=== PATIENT | male | born 1960 | race Two or more races ===

== ENCOUNTER 2018-09-25 10:00 | Outpatient (AMBR) | payer MEDICAID, SELFPAY ==
--- NOTE | 2018-09-08 18:27 | PT.ODAYNRPT ---
PT Outpatient Daily Note Date of Service: September 08, 2018 OP Daily Note Visit Reasons: muscle weakness Outpatient Physical Therapy Treatment Date: 09/08/18 Subjective: He says the L LE is not shaking from weakness like it was before therapy. Objective: See F/S for therex Assessment: Improved exercise tolerance with squats and treadmill today with improved L LE strength. Plan: Continue per POC Length of Time (minutes) of Treatment: 30 Minutes Office Procedures PT Procedures PT Date of Service: 09/08/18 Therapeutic Exercise 30 minutes: Yes
--- NOTE | 2018-09-15 11:10 | PT.ODAYNRPT ---
PT Outpatient Daily Note Date of Service: September 15, 2018 OP Daily Note Visit Reasons: muscle weakness Outpatient Physical Therapy Treatment Date: 09/15/18 Subjective: He says the L LE is not shaking from weakness like it was before therapy. Objective: See F/S for therex Assessment: Improved exercise tolerance overall but difficulty and fatigue with lunging onto that L LE today. Plan: Continue per POC Length of Time (minutes) of Treatment: 30 Minutes Office Procedures PT Procedures PT Date of Service: 09/08/18 Therapeutic Exercise 30 minutes: Yes PT Procedures PT Date of Service: 09/15/18 Therapeutic Exercise 30 minutes: Yes
--- NOTE | 2018-09-19 10:08 | PT.ODAYNRPT ---
PT Outpatient Daily Note Date of Service: September 19, 2018 OP Daily Note Visit Reasons: muscle weakness Outpatient Physical Therapy Treatment Date: 09/19/18 Subjective: pt doing well today with no complaints. pt always in positive mood upon treatment. Objective: see flow sheet. Assessment: added new exercises and pt was a little SOB but refused to take a break. pt performed all ther ex well with no difficulties. pt had fair balance on the [employer] baord as he was throwing the ball and catching it. used the [employer] ball for side steps and he had a little off balance the first 2 reps than he was able to keep the momentum with good balance. Plan: continue POC per PT. Length of Time (minutes) of Treatment: 30 Minutes Office Procedures PT Procedures PT Date of Service: 09/08/18 Therapeutic Exercise 30 minutes: Yes PT Procedures PT Date of Service: 09/15/18 Therapeutic Exercise 30 minutes: Yes PT Procedures PT Date of Service: 09/19/18 Therapeutic Exercise 30 minutes: Yes
--- NOTE | 2018-09-19 10:13 | PTNOTE_ITS ---
PT Outpatient Daily Note Date of Service: September 19, 2018 OP Daily Note Visit Reasons: muscle weakness Outpatient Physical Therapy Treatment Date: 09/19/18 Subjective: pt doing well today with no complaints. pt always in positive mood upon treatment. Objective: see flow sheet. Assessment: added new exercises and pt was a little SOB but refused to take a break. pt performed all ther ex well with no difficulties. pt had fair balance on the [employer] baord as he was throwing the ball and catching it. used the [employer] ball for side steps and he had a little off balance the first 2 reps than he was able to keep the momentum with good balance. Plan: continue POC per PT. Length of Time (minutes) of Treatment: 30 Minutes Office Procedures PT Procedures PT Date of Service: 09/08/18 Therapeutic Exercise 30 minutes: Yes PT Procedures PT Date of Service: 09/15/18 Therapeutic Exercise 30 minutes: Yes PT Procedures PT Date of Service: 09/19/18 Therapeutic Exercise 30 minutes: Yes
--- NOTE | 2018-09-25 18:08 | PT.ODS1RPT ---
PT OP Progress/Discharge Note Date of Service: September 25, 2018 Progress Note/DC Note Progress Note/Discharge Note: DC Note Patient Information Visit Reasons: muscle weakness Service Continue Service or Discharge: Discharge Discharge Date: 09/25/18 Status Subjective: He says the L LE is not shaking from weakness like it was before therapy. Objective: L quad and HS strength: 4+/5 Ambulate for >3 blocks Squat x50% depth x20 ArOM: Flexion: full Extension: full Assessment: Pt has attended / Rx visits and made good progress with therapy goals. He has much improved exercise endurance since starting therapy and can ambulate >3 blocks. Pt has improved L quad and HS strength to 4+/5 and can squat x20 to meet those goals. Plan: D/C with HEP Office Procedures PT Procedures PT Date of Service: 09/08/18 Therapeutic Exercise 30 minutes: Yes PT Procedures PT Date of Service: 09/25/18 Therapeutic Exercise 30 minutes: Yes PT Procedures PT Date of Service: 09/15/18 Therapeutic Exercise 30 minutes: Yes PT Procedures PT Date of Service: 09/19/18 Therapeutic Exercise 30 minutes: Yes
== END 2018-10-05 23:59 | disposition home or self-care (01) ==
PROVIDERS: PCP Family Medicine; Referring Provider Family Medicine; Visit Provider Family Medicine
DX: M62.81 Muscle weakness (generalized) (principal)
CPT/HCPCS: 97110

== ENCOUNTER 2025-01-25 14:08 | Emergency (ER) | payer MEDICAID, SELFPAY ==
[2025-01-25] VITALS (14 sets, daily range): BP systolic 111–162; BP diastolic 60–103; PULSE 60–87; RESP 13–20; TEMP 36.1–36.8; O2SAT 95–99; BMI 25.4
--- NOTE | 2025-01-25 14:31 | EKG_ITS ---
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
--- NOTE | 2025-01-25 14:31 | XR_ITS ---
Examination: AP chest single view Technique one AP portable sitting chest single view Date and time: January 25, 2025 1249 hours INDICATIONS: Chest pain today. FINDINGS: Normal heart size. Cardiac leads satisfactory position. No pneumonia or pulmonary edema. The osseous structures are intact IMPRESSION: No active disease.
--- NOTE | 2025-01-25 14:47 | PC.NURSE ---
PT IN TODAY AFTER PACEMAKER SHOCKED HIM TWICE LAST NIGHT. PT DID CALL [facility] [facility] AND CARDIO RECOMMENDED TO SEE PCP, WHEN PCP WAS CALLED THEY STATES THAT THEY DID NOT HAVE THE EQUIPMENT TO CHECK THE PACEMAKER AND RECOMMENDED PT TO COME IN AND GET EVALUATED. PT IS A/OX4 DAUGHTER IS AT BEDSIDE. PT DID FOLLOW UP WITH DR. MALONEY IN NOVEMBER AND EVERYTHING WAS OK WITH PACEMAKER.
[2025-01-25 15:17] LABS: Basophils # (Auto) 0.1 Thou/mm3 (0.0-0.2); Basophils % (Auto) 1 % (0-2.5); Eosinophils # (Auto) 0.1 Thou/mm3 (0.0-0.5); Eosinophils % (Auto) 1 % (0-10); Hematocrit 37.5 % (41.0-53.0); Hemoglobin 12.8 g/dL (13.5-16.0); Immature Granulocytes Auto 0.03 Thou/mm3 (0.00-0.00); Lymphocytes # (Auto) 2.1 Thou/mm3 (1.0-4.8); Lymphocytes % (Auto) 23 % (10-50); Mean Corpuscular HGB Conc 34.1 g/dl (31.0-37.0); Mean Corpuscular Hemoglobin 31.6 pg (25.0-35.0); Mean Corpuscular Volume 93 fL (80-100); Monocytes # (Auto) 0.6 Thou/mm3 (0.0-0.8); Monocytes % (Auto) 7 % (0-12); Neutrophils # (Auto) 6.2 Thou/mm3 (1.8-7.7); Neutrophils % (Auto) 68 % (37-80); Nucleated Red Blood Cell # 0.00 Thou/mm3 (0.00-0.00); Nucleated Red Blood Cell % 0 /100 WBC (0); Platelet Count 270 Thou/mm3 (140-440); RDW Standard Deviation 43.0 fL (35.1-43.9); Red Blood Count 4.05 Miln/mm3 (4.50-5.90); White Blood Count 9.1 Thou/mm3 (3.8-10.6)
--- NOTE | 2025-01-25 15:35 | PD.EDCHEST ---
ED Chest Pain RME/HPI General Chief Complaint: General Adult/Misc Complain Stated Complaint: ICD SHOCKED HEART X 2 LAST NIGHT Time Seen by Provider: 01/25/25 14:12 Arrival date/time: 01/25/25 14:08 This is a case of 64-year-old male with history of BPH urinary obstruction hypertension and pacemaker came in in the emergency room due to mild chest pain and shocking feeling on his left chest patient have a pacemaker on the left chest wall wanted to check if his pacemaker is working denies any shortness of breath denies any palpitation denies any other symptoms Limitations: no limitations Related Data Home Medications ?Medication ?Instructions ?Recorded ?Confirmed furosemide 20 mg tablet 1 tab PO QDAY ##30 12/26/16 07/19/23 lisinopril 5 mg tablet 1 tab PO QDAY ##30 12/26/16 07/19/23 loratadine 10 mg tablet 1 tab PO QDAY ##30 12/26/16 07/19/23 metoprolol succinate 25 mg 1 tab PO QDAY ##30 12/26/16 07/19/23 tablet,extended release 24 hr simvastatin 40 mg tablet 1 tab PO QDAY ##30 12/26/16 07/19/23 metformin 500 mg tablet 500 mg PO QDAY 08/02/20 07/19/23 aspirin 81 mg tablet,delayed 81 mg PO QDAY 05/04/22 07/19/23 release donepezil 10 mg tablet 10 mg PO QHS 05/04/22 07/19/23 memantine 10 mg tablet 10 mg PO BID 05/04/22 07/19/23 Allergies Allergy/AdvReac Type Severity Reaction Status Date / Time No Known Allergies Allergy Verified 01/25/25 14:11 Review of Systems Review of Systems Systems Reviewed: All systems reviewed, normal except as documented Constitutional Constitutional: Reports system reviewed and no additional complaints, except as documented and Reports as per HPI Cardiovascular Cardiovascular: Reports system reviewed and no additional complaints, except as documented, Reports as per HPI, Reports chest pain and Denies dyspnea Respiratory Respiratory: Reports system reviewed and no additional complaints, except as documented, Reports as per HPI and Denies dyspnea Gastrointestinal Gastrointestinal: Reports system reviewed and no additional complaints, except as documented and Reports as per HPI Musculoskeletal Musculoskeletal: Reports system reviewed and no additional complaints, except as documented and Reports as per HPI Neurologic Neurologic: Reports system reviewed and no additional complaints, except as documented and Reports as per HPI Past Medical History Past Medical History NEUROLOGIC: Positive Alzheimer's Disease CARDIAC: Positive Cardiac Disorders, Myocardial Infarction, Cardiac Arrhythmia (PPM), Hypercholesterolemia, Edema and Hypertension; Negative Congestive Heart Failure RESPIRATORY: Negative Chronic Obstructive Pulmonary Disease (COPD) GENITOURINARY: Negative Renal Disease ENDOCRINE: Positive Diabetes Mellitus Type 2; Negative Diabetes Mellitus Type 1 PSYCHO/SOCIAL: Positive Anxiety Family History FAMILY HISTORY: Positive Family Respiratory Disorders, Family Cardiac Disorders and Family Gastrointestinal Problems Surgical History SURGICAL: Positive Pacemaker Social History SMOKING STATUS: Current every day smoker SUBSTANCE USE: former substance user ED Exam General Limitations: Present no limitations General appearance: Present alert, in no apparent distress and other (Patient is awake alert oriented not in distress nontoxic looking) Head Head exam: Present atraumatic Eye Eye exam: Present normal appearance, PERRL and EOMI ENT ENT exam: Present normal exam, normal oropharynx and mucous membranes moist Neck Neck exam: Present normal inspection, full ROM and trachea midline; Absent tenderness, meningismus, lymphadenopathy or thyromegaly Chest Chest inspection: Present normal inspection, symmetric chest wall rise and other (Pacemaker left chest wall no abscess no cellulitis no redness intact); Absent tenderness, rash or abscess Respiratory Respiratory exam: Present normal lung sounds bilaterally; Absent respiratory distress, wheezes, stridor, accessory muscle use or prolonged expiratory phase Cardiovascular Cardiovascular exam: Present regular rate, normal rhythm and normal heart sounds; Absent bradycardia, tachycardia, irregular rhythm, systolic murmur or diastolic murmur Abdominal Exam Abdominal exam: Present soft and normal bowel sounds; Absent distention, tenderness, guarding, rebound, rigidity, diminished bowel sounds, hyperactive bowel sounds, hypoactive bowel sounds or organomegaly Extremities Exam Extremities exam: Present normal inspection and full ROM Back Exam Back exam: Present normal inspection and full ROM Neurological Exam Neurological exam: Present alert, oriented X3, CN II-XII intact, normal gait and reflexes normal; Absent motor sensory deficit Psychiatric Psychiatric exam: Present normal affect and normal mood Skin Skin exam: Present warm, dry, intact and normal color Course Quality Measures none Orders Category Date Time Status EKG (ED ONLY) *Do not use* NOW Care 01/25/25 14:32 Completed Referral - Process Stripper Stat Cons 01/25/25 18:09 Active EKG (ED Only) Stat Exams 01/25/25 14:31 Ordered XR chest 1V portable Stat Exams 01/25/25 14:31 Completed BNP [B-Type Natriuretic Peptide] Stat Lab 01/25/25 15:05 Completed CBC Stat Lab 01/25/25 15:05 Completed CMP [Comprehensive Metabolic Panel] Stat Lab 01/25/25 15:05 Completed Magnesium Stat Lab 01/25/25 15:05 Completed Troponin I Stat Lab 01/25/25 15:05 Completed Vital Signs Vital signs: Vital Signs Temperature 98.2 F 01/25/25 14:33 Pulse Rate 87 01/25/25 14:33 Respiratory Rate 17 01/25/25 14:33 Blood Pressure 121/75 01/25/25 14:33 Pulse Oximetry (%) 97 01/25/25 14:33 Oxygen Delivery Method Room Air 01/25/25 14:33 Patient is afebrile not tachycardic not tachypneic BP stable oxygen saturation is 97% in room air normal Chest Pain MDM Narrative MDM Narrative:: This is a case of 64-year-old male with history of BPH urinary obstruction hypertension and pacemaker came in in the emergency room due to mild chest pain and shocking feeling on his left chest patient have a pacemaker on the left chest wall wanted to check if his pacemaker is working denies any shortness of breath denies any palpitation denies any other symptoms physical examination patient is awake alert oriented not in distress nontoxic 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 patient vital signs stable BP stable not tachycardic not tachypneic not hypoxic and afebrile BP stable lungs sound is clear no crackles no rales no retraction no stridor heart normal rate regular rhythm no murmur no edema the rest of the physical examination neurological exam is normal and unremarkable blood test showed no leukocytosis no anemia kidney and liver function is normal no electrolyte imbalance troponin and BNP is also normal EKG sinus rhythm none pacing chest x-ray is normal magnesium level is also normal a interrogation was performed and noted that the battery is not working which patient probably need a new pacemaker I spoke to the provider education specialist on-call Dr maharaj discussed patient condition history and physical examination I was instructed to transfer the patient for higher level of care I spoke to a 2 doctors provider education specialist to a [address] Yoon from [facility] I was told that since the heart rate is normal patient do not need or no indication to admit the patient patient can go to the provider education specialist tomorrow for further evaluation and treatment I also spoke to one of the provider education specialist and [facility] Dr. Saleh I discussed the patient condition history and physical examination relayed the result of interrogation of the pacemaker I was instructed that there is no indication to admit the patient tonight patient can follow-up with the provider education specialist tomorrow for reevaluation and to have a scheduled to place a pacemaker I discussed it with my supervising physician regarding the instruction of the 2 provider education specialist and she agreed that we will just discharge the patient today with ER precaution for any worsening symptoms or any emergent concern the daughter and the patient understood very well the discharge instruction Patient was discharged with comfortable condition walking with stable gait. Patient verbalized no further complains explained diagnosis and answered patient question. Patient is comfortable with the proposed management plan including the need to follow up with his/her primary care physician and any specialist if applicable Discussed patient for any urgent condition or worsening sx, He/She needed to go to emergency room immediately or call 911. Patient acknowledge the responsibility to follow up as instructed and to monitor her/his symptoms. For any persistence of the symptoms for more than 3-5 days return precaution advised. Discussed the result of the test and was given printed discharge instruction Patient data External records reviewed:: [facility] previous records Clinical information provided by:: patient Social determinants that could affect healthcare access:: none Patient has the following chronic illnesses:: None How is presenting disease/condition affected by chronic disease/condition?: no chronic disease Evaluation data The following diagnostics were reviewed and interpreted by me:: lab results and radiology exam(s) Lab and/or radiology exams considered but not ordered:: Reviewed Interpretation Summary: Reviewed Medications / Prescriptions Medications or Prescriptions considered but not ordered:: Given Medication administrations:: Given Consultations Consultation(s) initiated? (list below): Yes Consultation #1 (Physician, Specialty, Details): dr mejia discussed patient condition history and physical examination result of the interrogation of the pacemaker I was instructed to transfer for the patient to higher level of care Consultation #2 (Physician, Specialty, Details): dr yoon provider education specialist from [facility] I was instructed since the vital signs normal patient is not bradycardic patient is asymptomatic patient do not need to have a stat surgery tonight patient can go home and follow-up with a provider education specialist for further evaluation and treatment Consultation #3 (Physician, Specialty, Details): dr saleh [facility] I was told that the patient do not need a stat admission tonight patient can go to the provider education specialist tomorrow for further evaluation and treatment and to schedule the pacemaker insertion Diagnosis Chest Pain Differential Diagnosis: costochondritis, chest pain and other Most likely diagnosis given after review of the tests above:: Pacemaker malfunction Admission Indicated Admission indicated?: not indicated Explain why admission is indicated or not indicated:: Not indicated Admission Request Was there a request for admission?: No Admission Attestation Admission request attestation: Not indicated Disposition Plan Disposition Plan: Discharge Discharge Attestation Discharge Attestation: The patient and all family members were given an opportunity to ask questions and understood the discharge instructions. Discharge instructions specifically effects, indications for sooner follow up or return to the emergency department, and the expected course of current diagnosis. Patient condition: Stable Discharge Plan Plan Patient Disposition: HOME (Self Care) Patient condition on transfer: Stable Prescriptions/Referrals Prescriptions/Med Rec: No Action metformin 500 mg tablet 500 mg PO QDAY aspirin 81 mg tablet,delayed release (DR/EC) 81 mg PO QDAY memantine 10 mg tablet 10 mg PO BID donepezil 10 mg tablet 10 mg PO QHS simvastatin 40 MG tablet 1 tab PO QDAY Qty: 30 lisinopril 5 MG tablet 1 tab PO QDAY Qty: 30 furosemide 20 MG tablet 1 tab PO QDAY Qty: 30 metoprolol succinate 25 MG tablet extended release 24 hr 1 tab PO QDAY Qty: 30 loratadine 10 MG tablet 1 tab PO QDAY Qty: 30 Referrals: No Primary/Family,Physician [Primary Care Provider] - In 1 week Problem List Clinical Impression: Chest pain of unknown etiology, Pacemaker malfunction Patient/Caregiver Discharge Instructions Education Materials: ED Chest Pain, Uncertain Cause, ED Pacemaker Failure Additional Instructions: Follow-up with your provider education specialist tomorrow Dr Boyle in [place] for further evaluation and treatment of your pacemaker malfunction and for your chest pain for possible pacemaker insertion recurrence persistent worsening symptoms or any emergent concern call 911 or go to the nearest emergency room it is very important to see a provider education specialist tomorrow for further evaluation and treatment and possible procedure Print Language: Eritrean Stand Alone Forms: Tomasa Award Info., Patient Portal Info Letter PA/LITERACY COORDINATOR Supervising Physician PA/LITERACY COORDINATOR Supervising Physician: DR marshall
[2025-01-25 15:37] LABS: B-Type Natriuretic Peptide 24 pg/mL (0-100)
[2025-01-25 15:38] LABS: Alanine Aminotransferase 10 U/L (10-49); Albumin, Serum 4.5 gm/dL (3.4-4.8); Albumin/Globulin Ratio 2.3 (1.2-2.2); Alkaline Phosphatase 61 U/L (46-116); Anion Gap 5 (7-16); Aspartate Amino Transferase 15 U/L (0-34); BUN/Creatinine Ratio 15 Ratio (12-20); Bilirubin,Total 0.4 mg/dL (0.3-1.2); Blood Urea Nitrogen 16 mg/dL (9-23); Calcium 9.9 mg/dL (8.3-10.6); Calcium (Corrected) 9.9 mg/dL (8.5-10.1); Carbon Dioxide 27.2 mMol/L (20.0-31.0); Chloride 109 mMol/L (98-107); Creatinine (Component) 1.1 mg/dL (0.6-1.3); Estimated Creatinine Clearance 57.6 mL/min (>60); Globulin 2.0 gm/dL (2.3-3.5); Glucose 100 mg/dL (74-106); Osmolality,Calculated 282 (275-295); Potassium 4.2 mMol/L (3.4-5.1); Sodium 141 mMol/L (136-145); Total Protein 6.5 gm/dL (5.7-8.2); Troponin I < 0.020 ng/mL (0.0-0.045); eGFR > 60 See Note
--- NOTE | 2025-01-25 15:57 | PC.NURSE ---
Dickson ICD placed 08/05/2015 Model [id number] Serial [id number] Dickson for interrogation [phone]
--- NOTE | 2025-01-25 18:23 | PC.CC ---
Addendum entered by Argelia Viveros RN 01/25/25 19:34: transfer packet CD created, handed to LISSETTE Harper Addendum entered by Argelia Viveros RN 01/25/25 19:33: per SIGRID Lal, ED will reach out to another facility. Addendum entered by Argelia Viveros RN 01/25/25 19:32: 1930: per SIGRID Lal, [facility] declined transfer request and pt can be dc'd home. Addendum entered by Argelia Viveros RN 01/25/25 18:42: 1831: called [facility] TC again, Dr. Boyle will be called and will call me back. Original Note: 1820: Called [facility] TC, left message on VM to initiate transfer request. 1814: Clinicals sent to [facility], [place] created 1809: received call from LISSETTE Diego for transfer request per SIGRID Lal for cardiology Dr. Boyle, ICD firing needs to be interrogated.
[2025-01-25 18:36] LABS: Magnesium 1.8 mg/dL (1.6-2.6)
--- NOTE | 2025-01-25 20:18 | PC.NURSE ---
I CALLED [facility] AT THIS TIME TO START A TRANSFER AND FAXED OVER A FS. PROVIDER GRACE IS ON THE PHONE WITH THE TRANSFER NURSE AT THIS TIME.
== END 2025-01-25 21:36 | disposition home or self-care (01) ==
PROVIDERS: Nurse Practitioner Family; Emergency Provider Emergency Medicine
DX: T82.118A Breakdown (mechanical) of other cardiac electronic device, initial encounter (principal); R07.9 Chest pain, unspecified; R94.31 Abnormal electrocardiogram [ECG] [EKG]; Y84.8 Other medical procedures as the cause of abnormal reaction of the patient, or of later complication, without mention of misadventure at the time of the procedure
CPT/HCPCS: 36415; 71045; 80053; 83735; 83880; 84484; 85025; 93005; 99284

== ENCOUNTER → 2025-03-29 | Outpatient (CLI) | payer MEDICAID, SELFPAY ==
--- NOTE | 2025-03-29 16:00 | XR_ITS ---
Examination: Thyroid sonography complete TECHNIQUE: Grayscale sonographic images thyroid lobes Date and time: March 29, 2025 1411 hours INDICATIONS: Diagnosis nontoxic single thyroid nodule FINDINGS: Right thyroid 4.0 cm Left thyroid 2.9 cm No cystic or solid nodules IMPRESSION: Negative examination
== END | disposition home or self-care (01) ==
LOC: CDIM 15:32
PROVIDERS: PCP Student in an Organized Health Care Education/Training Program; Referring Provider Student in an Organized Health Care Education/Training Program; Visit Provider Student in an Organized Health Care Education/Training Program
DX: E04.1 Nontoxic single thyroid nodule (principal); Z86.018 Personal history of other benign neoplasm
CPT/HCPCS: 76536